=== PATIENT | male | born 1990 | race American Indian/Alaskan Native ===

== ENCOUNTER 2016-10-16 08:18 | Day surgery (SDC) | payer MEDICAID ==
[2016-10-16 08:52] VITALS: BMI 22.8
[2016-10-16 09:16] VITALS: TEMP 98
[2016-10-16] MEDS ORDERED: Propofol 10 mg/ml Inj (20 ML) ONE (10:21)
[2016-10-16] MEDS ORDERED: Lidocaine Hydrochloride 5 ML INJ ONE (10:24)
[2016-10-16] MEDS ORDERED: Lactated Ringer's 500 ML IV ONE ×2 (10:26)
[2016-10-16] MEDS ORDERED: Lactated Ringer's 500 ML IV SCH (10:45)
[2016-10-16 11:27] VITALS: RESP 15
[2016-10-16 11:52] VITALS: BP 115/65; PULSE 56; O2SAT 98
== END 2016-10-16 11:49 | disposition home or self-care (01) ==
LOC: C.ENDO 08:18
PROVIDERS: ATTEND Internal Medicine Gastroenterology
DX: K29.50 Unspecified chronic gastritis without bleeding (principal); R63.0 Anorexia; K20.9 Esophagitis, unspecified
CPT/HCPCS: 43239; 88305; J2704; J3010; J7120